=== PATIENT | female | born 1990 | race Caucasian/White ===

== ENCOUNTER 2016-12-24 15:25 | Emergency (ER) | payer OTHER ==
[~2016-12-24] VITALS: Ht 154.9 cm; Wt 97.1 kg
[~2016-12-24 15:25] MED LIST: HYDR-971 PO; NAPR550T PO; OXYC-323 PO
[2016-12-24 16:44] VITALS: BP 125/81
[2016-12-24] MEDS ORDERED: NAPROXEN 250 MG TABLET PO ONE (17:00)
[2016-12-24] MEDS ORDERED: NAPROXEN 250 MG TABLET ONE (17:04)
--- NOTE | 2016-12-24 17:37 | ED.ADGEN ---
Past Medical History Past Medical History: Anxiety, Depression Past Surgical History: Cholecystectomy, Alcohol Use: None Drug Use: None Adult General Chief Complaint Chief Complaint: CHEST WALL PAIN HPI HPI Patient is a 26 year old woman with a history of anxiety, who presents to the emergency department with a complaint of anterior chest wall tightness and shortness of breath over the past several days. Patient states that he was at a [employer] game on Sunday, she states that she is afraid of heights, did not realize that the seats that she was going to were "way up high". Patient states that she experienced a severe anxiety attack while she was at the game, states that "my legs just gave out", states that she was lowered to the ground, did not fall did not strike her head or chest. She states that she was taken down to the medical station, where she received oxygen for several hours, and was observed until she felt calmer. She states that she has not taken any additional medications or any other exposures, or any other ingestions. Denies any focal weakness, numbness or tingling, any headache, any fevers or chills. No recent travel or surgery, no swelling extremities, no rashes, history of DVT or PE in himself or family members, patient does not take any exogenous estrogens. Review of Systems Review of Systems Constitutional: Denies fever or chills. [] Eyes: Denies change in visual acuity. [] HENT: Denies nasal congestion or sore throat. [] Respiratory: Denies cough or shortness of breath. [] Cardiovascular: Anterior chest wall pain, worse with deep inspiration. No edema. GI: Denies abdominal pain, nausea, vomiting, bloody stools or diarrhea. [] : Denies dysuria. [] Musculoskeletal: Denies back pain or joint pain. [] Integument: Denies rash. [] Neurologic: Denies headache, focal weakness or sensory changes. [] Endocrine: Denies polyuria or polydipsia. [] Lymphatic: Denies swollen glands. [] Psychiatric: Denies depression or anxiety. [] Current Medications Current Medications Current Medications Medications (Trade) Dose Ordered Sig/Britta Start Time Stop Time Status Last Admin Dose Admin Naproxen (Naprosyn) 250 mg STK-MED ONCE 12/24/16 17:04 12/24/16 18:28 DC Allergies Allergies Allergies Coded Allergies Type Severity Reaction Last Updated Verified No Known Drug Allergies 08/09/15 No Physical Exam Physical Exam Constitutional: Well developed, well nourished, no acute distress, non-toxic appearance. [] HENT: Normocephalic, atraumatic, bilateral external ears normal, oropharynx moist, no oral exudates, nose normal. [] Eyes: PERRLA, EOMI, conjunctiva normal, no discharge. [] Neck: Normal range of motion, no tenderness, supple, no stridor. [] Cardiovascular:Heart rate regular rhythm, no murmur, S1, S2, rubs and gallops. [ ] Lungs & Thorax: Bilateral breath sounds clear to auscultation, no wheezing, rhonchi, rales. No chest crepitus, patient with reproducible chest tenderness across the anterior portion of her chest, worse between ribs 4 and ribs 6 across the anterior portion, no lesions or external abnormality identified. Abdomen: Bowel sounds normal, soft, no tenderness, no masses, no pulsatile masses. [] Skin: Warm, dry, no erythema, no rash. [] Back: No tenderness, no CVA tenderness. [] Extremities: No tenderness, no cyanosis, no clubbing, ROM intact, no edema. Negative Homans sign. [] Neurologic: Alert and oriented X 3, normal motor function, normal sensory function, no focal deficits noted. [] Psychologic: Affect normal, judgement normal, mood normal. [] Current Patient Data Vital Signs Vital Signs Date Time Temp Pulse Resp B/P (MAP) Pulse Ox O2 Delivery O2 Flow Rate FiO2 12/24/16 16:44 79 20 125/81 (96) 98 Room Air 12/24/16 15:37 98.3 98.3 Lab Values Laboratory Tests Test 12/24/16 14:43 POC Urine HCG, Qualitative Hcg negative (Negative) EKG EKG EC: Sinus rhythm, heart rate 74 beats/minute, upright axis, QTC of 418, ND of 150, QRS 92, no ST elevations or depressions, no evidence of acute ST abnormalities. As interpreted by me. [] Radiology/Procedures Radiology/Procedures [][facility] [address] [place], [place] [id number] IMAGING REPORT Signed PATIENT: ARTUROGOVENANCIO VALADEZ V ACCOUNT: [id number] : 1990 LOCATION: ER AGE: 26 SEX: F EXAM STATUS: DEP ER ORD. PHYSICIAN: EMILY VOSS DO REASON: CP PROCEDURE: CHEST PA & LATERAL PA and lateral chest radiographs 12/24/2016. Clinical History: Chest pain and anxiety. PA and lateral digital radiographs of the chest were obtained. Comparison study dated 03/20/2010. The cardiac and mediastinal silhouettes are within normal limits in size and configuration. No pulmonary infiltrate is seen. No pleural effusion or pneumothorax is noted. The osseous structures are grossly intact. Impression: No radiographic evidence of active cardiopulmonary disease. DICTATED and SIGNED BY: NATALIE PETER MD DATE: 12/24/16 1608 CC: EMILY VOSS DO; UNKNOWN PCP NAME ~ Course & Med Decision Making Course & Med Decision Making Pertinent Labs and Imaging studies reviewed. (See chart for details) Patient well-appearing, oxygen saturation is 99% on room air, respiratory rate is 18-20, and unlabored, heart rate is in the 70s, patient is normotensive. Patient denies any concerning history, it does sound as though she was hyperventilating quite significantly, had discussed the patient she may be expressing some costochondritis or muscle strain for this episode of anxiety. Chest x-ray was ordered, did not reveal any concerning findings, patient was hCG negative. She did receive naproxen in the ED, on reevaluation she states that her pain is improved. Discussed with patient that concerning findings had not been identified. Patient is relieved with these findings, an ambulatory trial was performed in the emergency department, patient's saturation remained in the mid upper 90s, with a heart rate in the 80s, she denied any concerning symptoms during this trial. Patient states she is ready to go home at this time. Discussed with patient use of [id number] medications as as naproxen , and cyclobenzaprine for discomfort, discussed importance of follow-up with a primary care provider for additional evaluation of her anxiety symptoms, and concerning symptoms that prompt return to the emergency department. Patient voices understanding and agreement plan as stated, discharged home in stable condition with prescriptions, precautions, and plan as above. Dragon Disclaimer Dragon Disclaimer This electronic medical record was generated, in whole or in part, using a voice recognition dictation system. Departure Impression: Primary Impression: Costochondritis Additional Impressions: Muscle strain Anxiety Disposition: 01 HOME, SELF-CARE Condition: IMPROVED Scripts Cyclobenzaprine Hcl (CYCLOBENZAPRINE HCL) 10 Mg Tablet 10 MG PO TID Y for MUSCLE PAIN, #12 TAB Prov: EMILY VOSS DO 12/24/16 Naproxen (NAPROXEN) 250 Mg Tablet 250 MG PO PRN BID Y for PAIN, #10 Prov: EMILY VOSS DO 12/24/16 Problem Qualifiers EMILY VOSS DO Dec 24, 2016 17:37
[2016-12-24] MEDS ORDERED: NAPR250T2 PO (18:15)
[2016-12-24] MEDS ORDERED: CYCL10TA2 PO (18:15)
--- NOTE | 2016-12-24 18:27 | RAD ---
PA and lateral chest radiographs 12/24/2016. Clinical History: Chest pain and anxiety. PA and lateral digital radiographs of the chest were obtained. Comparison study dated 03/20/2010. The cardiac and mediastinal silhouettes are within normal limits in size and configuration. No pulmonary infiltrate is seen. No pleural effusion or pneumothorax is noted. The osseous structures are grossly intact. Impression: No radiographic evidence of active cardiopulmonary disease.
--- NOTE | 2016-12-25 06:26 | EKG ---
[facility] [address] [place] [address] Test Date: 2016-12-24 Test Time: 15:31:15 Pat Name: VENANCIO CARBAJAL Department: Room: Gender: F Site Operations Manager: : 1990 Requested By: EMILY VOSS Order Number: [id number] Reading MD: Measurements Intervals [place] Rate: 74 P: 0 RI: 150 QRS: 4 QRSD: 92 T: 7 QT: 372 QTc: 418 Interpretive Statements SINUS RHYTHM QRS(T) CONTOUR ABNORMALITY CANNOT RULE OUT ANTEROSEPTAL MYOCARDIAL DAMAGE RI6.01 Unconfirmed report No previous ECG available for comparison
== END 2016-12-24 18:24 | disposition home or self-care (01) ==
LOC: ER 15:25
DX: S29.011A Strain of muscle and tendon of front wall of thorax, initial encounter (principal); M94.0 Chondrocostal junction syndrome [Tietze]; F41.9 Anxiety disorder, unspecified; F32.9 Major depressive disorder, single episode, unspecified; Z90.49 Acquired absence of other specified parts of digestive tract; X58.XXXA Exposure to other specified factors, initial encounter; Y93.89 Activity, other specified; Y92.89 Other specified places as the place of occurrence of the external cause; Y99.8 Other external cause status
CPT/HCPCS: 71020; 81025; 93005; 99284-25

== ENCOUNTER 2017-01-18 22:54 | Emergency (ER) | payer OTHER ==
[~2017-01-18] VITALS: Ht 160 cm; Wt 97.1 kg
[~2017-01-18 22:54] MED LIST changes: +CYCL10TA2 PO; +NAPR-682 PO; +NAPR250T6 PO; -NAPR550T PO
[2017-01-19] MEDS ORDERED: fentaNYL PF VIAL 100 MCG/2 ML VIAL IV ONE (00:15)
[2017-01-19 00:20] LABS: BASO # 0.1 x10^3/uL (0.0-0.2); BASO % 1 % (0-3); EOS % 1 % (0-3); HEMATOCRIT 39.1 % (36.0-47.0); HEMOGLOBIN 13.1 g/dL (12.0-15.5); LYMPH # 3.1 x10^3/uL (1.0-4.8); LYMPH % 34 % (24-48); MEAN CORPUSCULAR HEMOGLOBIN 30 pg (25-35); MEAN CORPUSCULAR HGB CONC 34 g/dL (31-37); MEAN CORPUSCULAR VOLUME 88 fL (79-100); MONO % 8 % (0-9); NEUT % 57 % (31-73); PLATELET COUNT 228 x10^3/uL (140-400); RED BLOOD COUNT 4.42 x10^6/uL (3.50-5.40); RED CELL DISTRIBUTION WIDTH 13.9 % (11.5-14.5); WHITE BLOOD COUNT 9.1 x10^3/uL (4.0-11.0)
[2017-01-19] MEDS ORDERED: ONDANSETRON PF 4 MG/2 ML VIAL. ONE (00:22)
[2017-01-19 00:27] LABS: BILIRUBIN,URINE NEGATIVE (NEG); GLUCOSE,URINE NEGATIVE (NEG); NITRITE,URINE NEGATIVE (NEG); PH,URINE 6.5; PROTEIN,URINE NEGATIVE (NEG-TRACE); UROBILINOGEN,URINE 0.2 mg/dL (0.2 mg/dL)
[2017-01-19 00:29] LABS: NEG OBC SER NEG; POS OBC SER POS
[2017-01-19] MEDS ORDERED: ONDANSETRON PF 4 MG/2 ML VIAL. IV ONE (00:30)
[2017-01-19 00:31] LABS: CALCIUM 9.1 mg/dL (8.5-10.1); CREATININE 0.8 mg/dL (0.6-1.0); GFR 85.4; POTASSIUM 3.8 mmol/L (3.5-5.1)
[2017-01-19 00:35] LABS: BACTERIA,URINE 0 /HPF (0-FEW); RBC,URINE 0 /HPF (0-2); SQUAMOUS EPITHELIAL CELL,UR FEW /LPF; WBC,URINE 0 /HPF (0-4)
[2017-01-19 00:37] LABS: ALBUMIN 3.5 g/dL (3.4-5.0); C-REACTIVE PROTEIN 7.5 mg/L (0-3.3); TOTAL BILIRUBIN 0.1 mg/dL (0.2-1.0); TOTAL PROTEIN 7.1 g/dL (6.4-8.2)
[2017-01-19] MEDS ORDERED: CONTRAST GIVEN MC PRN (01:45)
[2017-01-19] MEDS ORDERED: IOHEXOL 300 MG/ML 75 ML VIAL IV ONE (01:45)
[2017-01-19] MEDS ORDERED: MORPHINE SULFATE 4 MG/ML DISP.SYRIN. IV ONE (02:00)
--- NOTE | 2017-01-19 02:13 | RAD ---
INDICATION: abd pain; Omni 300, 75ml COMPARISON: November 24, 2015 TECHNIQUE: Axial CT images were obtained through the abdomen and pelvis with intravenous contrast. One or more of the following individualized dose reduction techniques were utilized for this examination: 1. Automated exposure control; 2. Adjustment of the mA and/or kV according to patient size; 3. Use of iterative reconstruction technique. FINDINGS: Chest Base: Partially imaged without gross abnormality. Vessels: No abdominal aortic aneurysm. Liver/Biliary: No intrahepatic biliary duct dilation. Pancreas: No peripancreatic edema. Spleen: Normal. Kidneys/Adrenal: No hydronephrosis. Bladder: No definite adjacent inflammation. GI: No free air. No bowel dilation to suggest obstruction. The appendix measures approximately 5-6 mm without definite adjacent inflammation. IMPRESSION: 1. The appendix is near the upper limits of normal in size but there is no adjacent inflammatory changes at this time. 2. No evidence of bowel obstruction or hydronephrosis. Electronically signed by: Marco Gonzalez MD (01/19/2017 2:10 AM) [id number]
[2017-01-19 02:30] VITALS: BP 108/58
--- NOTE | 2017-01-19 04:40 | PHYS DOC ---
Past Medical History Past Medical History: Anxiety, Depression Past Surgical History: Cholecystectomy, Alcohol Use: None Drug Use: None Adult General Chief Complaint Chief Complaint: ABDOMINAL PAIN HPI HPI Patient is a 26 year old female with history of cholecystectomy who presents with diffuse midabdominal pain starting several hours prior to ED arrival. Abdominal pain is rated mild to moderate described as burning. It is worse palpation. Patient is unable to find position of rest or comfort. Tylenol taken with limited improvement. No flank pain, urinary frequency urgency, no dysuria. No hematuria. No history of abdominal pain. No constipation or diarrhea. No bloody stools or dark tarry stools. Denies nausea or vomiting. No fever chills or sweats. Last menstrual period was one month ago. Patient is not currently on control. Review of Systems Review of Systems Review symptoms as prescribed. All other review symptoms are negative. Current Medications Current Medications Current Medications Medications (Trade) Dose Ordered Sig/Britta Start Time Stop Time Status Last Admin Dose Admin Fentanyl Citrate (Fentanyl 2ml Vial) 75 mcg 1X ONCE 01/19/17 00:15 01/19/17 00:16 DC 01/19/17 00:26 75 MCG Info (Do NOT chart on this entry -- for MONITORING) 1 each PRN DAILY PRN 01/19/17 01:45 01/19/17 03:00 DC Iohexol (Omnipaque 300 Mg/ml) 75 ml 1X ONCE 01/19/17 01:45 01/19/17 01:46 DC 01/19/17 01:59 75 ML Morphine Sulfate 4 mg 1X ONCE 01/19/17 02:00 01/19/17 02:10 DC 01/19/17 02:02 4 MG Ondansetron HCl (Zofran) 4 mg 1X ONCE 01/19/17 00:30 01/19/17 00:41 DC 01/19/17 00:26 4 MG Allergies Allergies Allergies Coded Allergies Type Severity Reaction Last Updated Verified No Known Drug Allergies 08/09/15 No Physical Exam Physical Exam Constitutional: Well developed, well nourished, no acute distress, non-toxic appearance. [] HENT: Normocephalic, atraumatic, bilateral external ears normal, oropharynx moist, no oral exudates, nose normal. [] Eyes: PERRLA, EOMI, conjunctiva normal, no discharge. [] Neck: Normal range of motion, no tenderness, supple, no stridor. [] Cardiovascular:Heart rate regular rhythm, no murmur [] Lungs & Thorax: Bilateral breath sounds clear to auscultation [] Abdomen: Bowel sounds normal, soft, no distention, periumbilical pain, tenderness, no rebound rigidity or guarding, negative for any sign. [] Skin: Warm, dry, no erythema, no rash. [] Back: No tenderness, no CVA tenderness. [] Extremities: No tenderness. [] Neurologic: Alert and oriented X 3, normal motor function, normal sensory function, no focal deficits noted. [] Psychologic: Affect normal, judgement normal, mood normal. [] Current Patient Data Vital Signs Vital Signs Date Time Temp Pulse Resp B/P (MAP) Pulse Ox O2 Delivery O2 Flow Rate FiO2 01/19/17 02:30 72 16 108/58 (75) 97 Room Air 01/18/17 23:20 97.6 97.6 Lab Values Laboratory Tests Test 01/18/17 22:38 01/18/17 23:04 01/18/17 23:11 POC Urine HCG, Qualitative Hcg negative (Negative) Urine Collection Type Unknown Urine Color Yellow Urine Clarity Clear Urine pH 6.5 Urine Specific [place]ola 1.020 Urine Protein Negative mg/dL (NEG-TRACE) Urine Glucose (UA) Negative mg/dL (NEG) Urine Ketones (Stick) Negative mg/dL (NEG) Urine Blood Negative (NEG) Urine Nitrite Negative (NEG) Urine Bilirubin Negative (NEG) Urine Urobilinogen Dipstick 0.2 mg/dL (0.2 mg/dL) Urine Leukocyte Esterase Negative (NEG) Urine RBC 0 /HPF (0-2) Urine WBC 0 /HPF (0-4) Urine Squamous Epithelial Cells Few /LPF Urine Amorphous Sediment Present /HPF Urine Bacteria 0 /HPF (0-FEW) Urine Mucus Slight /LPF White Blood Count 9.1 x10^3/uL (4.0-11.0) Red Blood Count 4.42 x10^6/uL (3.50-5.40) Hemoglobin 13.1 g/dL (12.0-15.5) Hematocrit 39.1 % (36.0-47.0) Mean Corpuscular Volume 88 fL (79-100) Mean Corpuscular Hemoglobin 30 pg (25-35) Mean Corpuscular Hemoglobin Concent 34 g/dL (31-37) Red Cell Distribution Width 13.9 % (11.5-14.5) Platelet Count 228 x10^3/uL (140-400) Neutrophils (%) (Auto) 57 % (31-73) Lymphocytes (%) (Auto) 34 % (24-48) Monocytes (%) (Auto) 8 % (0-9) Eosinophils (%) (Auto) 1 % (0-3) Basophils (%) (Auto) 1 % (0-3) Neutrophils # (Auto) 5.1 x10^3uL (1.8-7.7) Lymphocytes # (Auto) 3.1 x10^3/uL (1.0-4.8) Monocytes # (Auto) 0.7 x10^3/uL (0.0-1.1) Eosinophils # (Auto) 0.1 x10^3/uL (0.0-0.7) Basophils # (Auto) 0.1 x10^3/uL (0.0-0.2) Sodium Level 142 mmol/L (136-145) Potassium Level 3.8 mmol/L (3.5-5.1) Chloride Level 105 mmol/L (98-107) Carbon Dioxide Level 26 mmol/L (21-32) Anion Gap 11 (6-14) Blood Urea Nitrogen 12 mg/dL (7-20) Creatinine 0.8 mg/dL (0.6-1.0) Estimated GFR (Cockcroft-Gault) 85.4 BUN/Creatinine Ratio 15 (6-20) Glucose Level 103 mg/dL (70-99) H Calcium Level 9.1 mg/dL (8.5-10.1) Total Bilirubin 0.1 mg/dL (0.2-1.0) L Aspartate Amino Transferase (AST) 15 U/L (15-37) Alanine Aminotransferase (ALT) 28 U/L (14-59) Alkaline Phosphatase 73 U/L (46-116) C-Reactive Protein, Quantitative 7.5 mg/L (0-3.3) H Total Protein 7.1 g/dL (6.4-8.2) Albumin 3.5 g/dL (3.4-5.0) Albumin/Globulin Ratio 1.0 (1.0-1.7) Serum Test, Qualitative Negative (NEG) Laboratory Tests 01/18/17 23:11 Laboratory Tests 01/18/17 23:11 EKG EKG [] Radiology/Procedures Radiology/Procedures [CT abdomen pelvis: Appendix identified without evidence of inflammation. Appendix upper limits of normal per radiology report.] Course & Med Decision Making Course & Med Decision Making Pertinent Labs and Imaging studies reviewed. (See chart for details) [Periumbilical pain and tenderness without acute findings on CT. Possible early appendicitis. Will recheck in the ED in less than 24 hours. Patient verbalizes understanding agreement discharge instructions prior to departure.] Dragon Disclaimer Dragon Disclaimer This electronic medical record was generated, in whole or in part, using a voice recognition dictation system. Departure Departure Impression: Primary Impression: Abdominal pain Disposition: HOME, SELF-CARE Condition: GOOD Patient Instructions: Abdominal Pain (Nonspecific) Additional Instructions: You were evaluated in the emergency department for abdominal pain. The cause of your symptoms has not been determined, but may be caused by an early appendicitis or unknown cause. Please to home and rest, take Tylenol for pain and tramadol as needed for additional relief. Drink clear liquids only. Return to the emergency department 12-18 hours or reevaluation or sooner if worse. KRISH SABA DO Jan 19, 2017 04:40
[2017-01-19] MEDS ORDERED: AZIT500T PO (18:02)
[2017-01-19] MEDS ORDERED: METR500T PO (18:02)
[2017-01-19] MEDS ORDERED: NAPR500T PO (18:02)
[2017-01-19] MEDS ORDERED: CEFI200S PO (18:02)
== END 2017-01-19 03:00 | disposition home or self-care (01) ==
LOC: ER 22:54
DX: R10.33 Periumbilical pain (principal); Z90.49 Acquired absence of other specified parts of digestive tract; Z98.890 Other specified postprocedural states
CPT/HCPCS: 36415; 74177; 80053; 81001; 81025; 84703; 85025; 86140; 96374; 96375; 99285; J2270; J2405; J3010; Q9967

== ENCOUNTER 2017-01-19 16:20 | Emergency (ER) | payer OTHER ==
[~2017-01-19] VITALS: Ht 160 cm; Wt 97.1 kg
[2017-01-19] MEDS ORDERED: KETOROLAC TROMETHAMINE 60 MG/2 ML INJ. IM ONE (17:00)
--- NOTE | 2017-01-19 17:07 | PHYS DOC ---
Past Medical History Past Medical History: Anxiety, Depression Past Surgical History: Cholecystectomy, Alcohol Use: None Drug Use: None Adult General Chief Complaint Chief Complaint: ABDOMINAL PAIN HPI HPI Patient is a 26 year old female presents to the emergency department with complaints of lower abdominal pain. Patient states that she was in the emergency department yesterday evening for same complaint. She had labs and a CT abdomen. She states she was advised that her appendix was enlarged and was discharged home with pain medication and clear liquid diet. She was told return to the emergency department today for reevaluation and possible admission. Patient reports that her pain started approximately 1 week prior to her visit yesterday. It is not associated with fever, nausea, vomiting, or urinary symptoms. Patient states that she has pain associated with intercourse, no vaginal discharge. She states she does have a new sexual partner. Review of Systems Review of Systems Constitutional: Denies fever or chills [] Eyes: Denies change in visual acuity, redness, or eye pain [] HENT: Denies nasal congestion or sore throat [] Respiratory: Denies cough or shortness of breath [] Cardiovascular: No additional information not addressed in HPI [] GI: Abdominal pain without nausea, vomiting, bloody stools or diarrhea. : Denies dysuria or hematuria [] Musculoskeletal: Denies back pain or joint pain [] Integument: Denies rash or skin lesions [] Neurologic: Denies headache, focal weakness or sensory changes [] Endocrine: Denies polyuria or polydipsia [] Current Medications Current Medications Current Medications Medications (Trade) Dose Ordered Sig/Britta Start Time Stop Time Status Last Admin Dose Admin Ketorolac Tromethamine (Toradol Im) 60 mg 1X ONCE 01/19/17 17:00 01/19/17 17:01 DC 01/19/17 17:21 60 MG Allergies Allergies Allergies Coded Allergies Type Severity Reaction Last Updated Verified No Known Drug Allergies 08/09/15 No Physical Exam Physical Exam Constitutional: Well developed, well nourished, no acute distress, non-toxic appearance. [] HENT: Normocephalic, atraumatic, bilateral external ears normal, oropharynx moist, no oral exudates, nose normal. [] Neck: Normal range of motion, no tenderness, supple, no stridor. [] Cardiovascular:Heart rate regular rhythm, no murmur [] Lungs & Thorax: Bilateral breath sounds clear to auscultation [] Abdomen: Bowel sounds normal, soft, no masses, no pulsatile masses. Mild tenderness to palpate a few slow abdomen without localization in the right lower quadrant. There is no rebound tenderness or guarding.[] : External genitalia within normal limits. Vaginal exam: Small amount of white discharge, the cervix is engorged. Bi-Manual exam: CMT and bilateral adnexal tenderness Skin: Warm, dry, no erythema, no rash. [] Back: No tenderness, no CVA tenderness. [] Extremities: No tenderness, no cyanosis, no clubbing, ROM intact, no edema. [] Neurologic: Alert and oriented X 3, normal motor function, normal sensory function, no focal deficits noted. [] Psychologic: Affect normal, judgement normal, mood normal. [] Current Patient Data Vital Signs Vital Signs Date Time Temp Pulse Resp B/P (MAP) Pulse Ox O2 Delivery O2 Flow Rate FiO2 01/19/17 17:15 82 16 119/70 (86) 97 Room Air 01/19/17 16:25 98.9 98.9 Lab Values Laboratory Tests Test 01/19/17 16:03 01/19/17 16:50 POC Urine HCG, Qualitative Hcg negative (Negative) White Blood Count 8.2 x10^3/uL (4.0-11.0) Red Blood Count 4.55 x10^6/uL (3.50-5.40) Hemoglobin 13.5 g/dL (12.0-15.5) Hematocrit 39.9 % (36.0-47.0) Mean Corpuscular Volume 88 fL (79-100) Mean Corpuscular Hemoglobin 30 pg (25-35) Mean Corpuscular Hemoglobin Concent 34 g/dL (31-37) Red Cell Distribution Width 14.2 % (11.5-14.5) Platelet Count 232 x10^3/uL (140-400) Neutrophils (%) (Auto) 57 % (31-73) Lymphocytes (%) (Auto) 33 % (24-48) Monocytes (%) (Auto) 8 % (0-9) Eosinophils (%) (Auto) 1 % (0-3) Basophils (%) (Auto) 1 % (0-3) Neutrophils # (Auto) 4.7 x10^3uL (1.8-7.7) Lymphocytes # (Auto) 2.7 x10^3/uL (1.0-4.8) Monocytes # (Auto) 0.6 x10^3/uL (0.0-1.1) Eosinophils # (Auto) 0.1 x10^3/uL (0.0-0.7) Basophils # (Auto) 0.1 x10^3/uL (0.0-0.2) Laboratory Tests 01/19/17 16:50 EKG EKG [] Radiology/Procedures Radiology/Procedures [] Course & Med Decision Making Course & Med Decision Making Pertinent Labs and Imaging studies reviewed. (See chart for details) []Inform the patient of her test results, diagnosis and plan to discharge home. I discussed with her plan for prescriptions for Zithromax, Suprax, Flagyl. The patient understands and agrees with the plan. All questions have been addressed at this time. The patient is resting comfortably and feels better, is alert and in no distress. Repeat examination is unremarkable and benign; in particular, there is no discomfort [place] point. The history, exam, diagnostic testing, and current condition do not suggest acute appendicitis, bowel disruption, tubo- ovarian abscess, ectopic , ovarian torsion, acute cholecystitis, bowel perforation, major GI bleed, severe diverticulitis, sepsis or other significant pathology to warrant further testing and continued ED treatment, admission or surgical valuation this point. Vital signs been stable. The patient does not have uncontrollable pain, intractable vomiting, or other significant symptoms. Since condition is stable and appropriate for discharge. The patient will pursue further outpatient evaluation with her primary care provider or other designated or consulting physician is indicated in the discharge instructions. Dragon Disclaimer Dragon Disclaimer This electronic medical record was generated, in whole or in part, using a voice recognition dictation system. Departure Departure Impression: Primary Impression: PID (acute pelvic inflammatory disease) Disposition: 01 HOME, SELF-CARE Condition: LEFT WITHOUT BEING SEEN Referrals: NO PCP (PCP) [facility] Patient Instructions: Pelvic Inflammatory Disease Additional Instructions: Please take prescriptions as directed. Pelvic rest, no sexual intercourse for 10 days. Your partner should report to the health Department for evaluation and treatment. Return to the emergency department for worsening of symptoms, new symptoms or concerns. Scripts Cefixime (SUPRAX) 200 Mg/5 Ml Susp.recon 400 MG PO ONCE, #10 ML Prov: RICARDO VARGHESE APRN 01/19/17 Naproxen (NAPROSYN) 500 Mg Tablet 500 MG PO BID Y for PAIN, #20 TAB Prov: RICARDO VARGHESE APRN 01/19/17 Metronidazole (FLAGYL) 500 Mg Tablet 1 TAB PO ONCE, #4 TAB Prov: RICARDO VARGHESE APRN 01/19/17 Azithromycin (ZITHROMAX) 500 Mg Tablet 2 TAB PO ONCE, #2 TAB Prov: RICARDO VARGHESE APRN 01/19/17 RICARDO VARGHESE APRN Jan 19, 2017 17:07
[2017-01-19 17:11] LABS: BASO # 0.1 x10^3/uL (0.0-0.2); BASO % 1 % (0-3); EOS % 1 % (0-3); HEMATOCRIT 39.9 % (36.0-47.0); HEMOGLOBIN 13.5 g/dL (12.0-15.5); LYMPH # 2.7 x10^3/uL (1.0-4.8); LYMPH % 33 % (24-48); MEAN CORPUSCULAR HEMOGLOBIN 30 pg (25-35); MEAN CORPUSCULAR HGB CONC 34 g/dL (31-37); MEAN CORPUSCULAR VOLUME 88 fL (79-100); MONO % 8 % (0-9); NEUT % 57 % (31-73); PLATELET COUNT 232 x10^3/uL (140-400); RED BLOOD COUNT 4.55 x10^6/uL (3.50-5.40); RED CELL DISTRIBUTION WIDTH 14.2 % (11.5-14.5); WHITE BLOOD COUNT 8.2 x10^3/uL (4.0-11.0)
[2017-01-19] MEDS ORDERED: AZIT500T PO (18:02)
[2017-01-19] MEDS ORDERED: CEFI200S PO (18:02)
[2017-01-19] MEDS ORDERED: NAPR500T PO (18:02)
[2017-01-19] MEDS ORDERED: METR500T PO (18:02)
[2017-01-19 18:14] VITALS: BP 117/68
== END 2017-01-19 18:15 | disposition home or self-care (01) ==
LOC: ER 16:20
DX: N73.9 Female pelvic inflammatory disease, unspecified (principal); Z90.49 Acquired absence of other specified parts of digestive tract; Z98.890 Other specified postprocedural states
CPT/HCPCS: 81025; 85025; 96372; 99284; J1885; Q0111; 36415; 87491; 87591

== ENCOUNTER 2020-09-25 11:46 | Emergency (ER) | payer OTHER ==
[~2020-09-25] VITALS: Ht 157.5 cm; Wt 105.0 kg
[~2020-09-25 11:46] MED LIST changes: +AZIT500T PO; +CEFI200S PO; +HYDR-3164 PO; -HYDR-971 PO; +METR500T PO; +NAPR-683 PO; +NAPR-699 PO; -NAPR250T6 PO; -OXYC-323 PO; +OXYC1TAB15 PO
[2020-09-25 12:00] VITALS: BP 132/79
[2020-09-25] MEDS ORDERED: MUPI22OI2 TP (12:40)
[2020-09-25] MEDS ORDERED: CEPH500C PO (12:40)
--- NOTE | 2020-09-25 12:41 | ED.ADGEN ---
Past Medical History Past Medical History: Anxiety, Depression Past Surgical History: Cholecystectomy, Smoking Status: Never Smoker Alcohol Use: None Drug Use: None General Adult EDM: Chief Complaint: INSECT BITE HPI: HPI: Patient is a 29 year old female who presents to the emergency department with complaints of left anterior thigh pain, redness, and swelling for the last 3 days. Patient states she was bit by something in the area and it has progressively become more painful and red. She denies any drainage or bleeding from the site. Patient denies any fever, cough, body aches, fatigue, nausea, vomiting, diarrhea, cough, or shortness of breath. She states that the affected area has been very itchy and tender. She currently rates her discomfort 8 out of 10 on the pain scale, the area is touched or she bears weight on her left leg the pain increases to a 10 out of 10. Review of Systems: Review of Systems: Complete ROS is negative unless otherwise noted in HPI. Allergies: Allergies: Allergies Coded Allergies Type Severity Reaction Last Updated Verified No Known Drug Allergies 08/09/15 No Physical Exam: PE: See Above Constitutional: Well developed, well nourished, no acute distress, non-toxic appearance. [] HENT: Normocephalic, atraumatic, bilateral external ears normal, nose normal. [] Eyes: PERRLA, EOMI, conjunctiva normal, no discharge. [] Neck: Normal range of motion, no stridor. [] Cardiovascular:Heart rate regular rhythm Lungs & Thorax: Respirations even and unlabored, no retractions, no respiratory distress Skin: Warm, dry; area of indurated tissue and erythema to the left anterior thigh without fluctuance or active drainage/bleeding, consistent with localized reaction/infection of insect bite. Extremities: No cyanosis, ROM intact, no edema. [] Neurologic: Alert and oriented X 3, normal motor, normal sensory, no focal deficits noted. [] Psychologic: Affect normal, judgement normal, mood normal. [] Current Patient Data: Vital Signs: Vital Signs Date Time Temp Pulse Resp B/P (MAP) Pulse Ox O2 Delivery O2 Flow Rate FiO2 09/25/20 12:00 98.7 88 18 132/79 (96) 96 Room Air 98.7 EKG: EKG: [] Heart Score: C/O Chest Pain: No Risk Scores: Score 0 - 3: 2.5% MACE over next 6 weeks - Discharge Home Score 4 - 6: 20.3% MACE over next 6 weeks - Admit for Clinical Observation Score 7 - 10: 72.7% MACE over next 6 weeks - Early Invasive Strategies Radiology/Procedures: Radiology/Procedures: [] Course & Med Decision Making: Course & Med Decision Making Pertinent Labs and Imaging studies reviewed. (See chart for details) [] Dragon Disclaimer: Dragon Disclaimer: This electronic medical record was generated, in whole or in part, using a voice recognition dictation system. Departure Departure Impression: Primary Impression: Infected insect bite of left thigh Disposition: HOME / SELF CARE / HOMELESS Condition: STABLE Referrals: NO PCP (PCP) Patient Instructions: Insect Bite, [id number] Additional Instructions: Fill the prescriptions and use them as directed you may take Benadryl or apply hydrocortisone cream/ointment as needed for relief of itching. You may take Tylenol or ibuprofen as needed for pain. Recommend application of heat or ice as needed for comfort. Follow-up with your primary care doctor next week for wound recheck, return to the ER if symptoms worsen or fever develops. [facility] [address] [place] [address] [facility] [address] [place] [address] [facility] [address] [facility] [place] [address] [facility] [address] [place] [address] [facility] [address] [place] [address] [facility] [address] [place] [address] [facility] [address] [place] [address] [facility] [address] [place] [address] [facility] [address] [place] [address] [facility] [address] [place] [address] [facility] Mupirocin (MUPIROCIN OINTMENT) 22 Gm Oint...g. 1 CHRISTEN TP TID for WOUND CARE for 7 Days, #1 TUBE 0 Refills Prov: ESTEPHANIE NELSON APRN 09/25/20 Cephalexin (CEPHALEXIN) 500 Mg Capsule 1 CAP PO QID for 7 Days, #28 CAP 0 Refills Prov: ESTEPHANIE NELSON APRN 09/25/20 Attending Signature Attending Signature I have reviewed the PA/ADOPTION AGENT's note and plan of care. I was available for consultation as needed during the patient's visit in the emergency department. I agree with the clinical impression, plan, and disposition. Problem Qualifiers Primary Impression: Infected insect bite of left thigh Encounter type: initial encounter Qualified Codes: S70.362A - Insect bite (nonvenomous), left thigh, initial encounter; L08.9 - Local infection of the skin and subcutaneous tissue, unspecified; W57.XXXA - Bitten or stung by nonvenomous insect and other nonvenomous arthropods, initial encounter ESTEPHANIE NELOSN APRN September 25, 2020 12:41 PANCHITO ÁLVAREZ DO September 25, 2020 15:02
== END 2020-09-25 12:45 | disposition home or self-care (01) ==
LOC: ER 11:46
DX: S70.362A Insect bite (nonvenomous), left thigh, initial encounter (principal); L08.9 Local infection of the skin and subcutaneous tissue, unspecified; W57.XXXA Bitten or stung by nonvenomous insect and other nonvenomous arthropods, initial encounter; Y93.89 Activity, other specified; Y92.89 Other specified places as the place of occurrence of the external cause; Y99.8 Other external cause status
CPT/HCPCS: 99283

== ENCOUNTER 2021-03-23 09:37 | Emergency (ER) | payer OTHER ==
[~2021-03-23] VITALS: Ht 157.5 cm; Wt 104.5 kg
[~2021-03-23 09:37] MED LIST changes: +CEPH500C PO; +CYCL10TA19 PO; -CYCL10TA2 PO; +MUPI22OI2 TP
[2021-03-23 10:20] VITALS: BP 132/71
--- NOTE | 2021-03-23 11:13 | RAD ---
XR HAND_LEFT 3 VIEWS DATE: 03/23/2021 10:26 AM INDICATION: smashed hand in car door COMPARISON: None. FINDINGS: Bones: There is no evidence of acute fracture or dislocation. Joints: The joint spaces are normal. Miscellaneous: None. IMPRESSION: No evidence of acute fracture. Electronically signed by: Ganga Wagner MD (03/23/2021 11:10 AM) [id number]
--- NOTE | 2021-03-23 11:34 | PHYS DOC ---
Past Medical History Past Medical History: Anxiety, Depression Past Surgical History: Cholecystectomy, , Tubal ligation Smoking Status: Never Smoker Alcohol Use: None Drug Use: None General Adult EDM: Chief Complaint: HAND PROBLEM HPI: HPI: Patient is a 30-year-old female who presents to the emergency department for left hand pain. She reports that the majority of her pain is located to the third and fourth finger of her left hand. Pain started this morning if she smashed her hand in a car door. Patient reports that her range of motion is decreased due to the pain. Sensation intact. Patient denies any open wounds. Review of Systems: Review of Systems: Musculoskeletal: See HPI Integument: See HPI Neurologic: See HPI Heart Score: C/O Chest Pain: N/A Risk Factors: Risk Factors: DM, Current or recent (<one month) smoker, HTN, HLP, family history of CAD, obesity. Risk Scores: Score 0 - 3: 2.5% MACE over next 6 weeks - Discharge Home Score 4 - 6: 20.3% MACE over next 6 weeks - Admit for Clinical Observation Score 7 - 10: 72.7% MACE over next 6 weeks - Early Invasive Strategies Allergies: Allergies: Allergies Coded Allergies Type Severity Reaction Last Updated Verified No Known Drug Allergies 08/09/15 No Physical Exam: PE: Constitutional: Well developed, well nourished, no acute distress, non-toxic appearance. [] HENT: Normocephalic, atraumatic Eyes: PERRL EOMI, conjunctiva normal, no discharge. [] Neck: Normal range of motion, n no stridor Cardiovascular: Normal peripheral perfusion Lungs & Thorax: No work of breathing, no tachypnea Abdomen: Bowel sounds normal, soft, no tenderness, no masses, no pulsatile masses. [] Skin: Warm, dry, no erythema, no rash. [] Back: Normal range of motion Extremities: No tenderness, no cyanosis, no clubbing, ROM intact, no edema. Left hand: Swelling and ecchymosis noted to left third and fourth finger starting at the PIP joint and extending to the DIP joint. Limited flexion of those fingers due to pain, neuro intact, full extension. No open wounds. Nailbed intact.] Neurologic: Alert and oriented X 3, normal motor function, normal sensory function, no focal deficits noted. [] Psychologic: Affect normal, judgement normal, mood normal. [] Current Patient Data: Vital Signs: Vital Signs Date Time Temp Pulse Resp B/P (MAP) Pulse Ox O2 Delivery O2 Flow Rate FiO2 03/23/21 10:20 98.2 80 17 132/71 (91) 97 Room Air 98.2 EKG: EKG: [] Radiology/Procedures: Radiology/Procedures: []PROCEDURE: HAND LEFT 3V XR HAND_LEFT 3 VIEWS DATE: 03/23/2021 10:26 AM INDICATION: smashed hand in car door COMPARISON: None. FINDINGS: Bones: There is no evidence of acute fracture or dislocation. Joints: The joint spaces are normal. Miscellaneous: None. IMPRESSION: No evidence of acute fracture. Electronically signed by: Edwin Voss MD (03/23/2021 11:10 AM) [id number] DICTATED and SIGNED BY: EDWIN VOSS MD DATE: 03/23/21 [id number] 0 Course & Med Decision Making: Course & Med Decision Making Pertinent Labs and Imaging studies reviewed. (See chart for details) [] She was seen in the emergency department for left hand pain after she smashed it in her car door this morning. An x-ray was performed that was negative for any acute findings. An Hugh wrap was placed. Patient educated to use ice and take Tylenol and/or ibuprofen for pain. Follow-up with primary care provider. I discussed with patient all findings and diagnostic testing as well as the need to follow-up with PCP for further evaluation and treatment or return to the ER if any new or worsening symptoms. Strict return precautions were also discussed at length. Patient voiced understanding and agreement with the plan. Patient is hemodynamically stable at the time of disposition. Dragon Disclaimer: Dragon Disclaimer: This electronic medical record was generated, in whole or in part, using a voice recognition dictation system. Departure Departure Impression: Primary Impression: Hand contusion Qualified Codes: S60.222A - Contusion of left hand, initial encounter Disposition: HOME / SELF CARE / HOMELESS Condition: GOOD Referrals: NO PCP (PCP) Patient Instructions: Hand Contusion, RICE - Routine Care for Injuries Additional Instructions: You were seen in the emergency department after he smashed your hand in a car door. An x-ray was performed of your hand and fingers that showed no acute findings. Your hand was placed in an Hugh wrap to help with the swelling. You can also apply ice and elevation to help with the swelling. You can take Tylenol and/or ibuprofen for your pain. Follow-up with your primary care provider tomorrow regarding your ER visit. Return to the emergency department if you develop worsening of your pain, decreased range of motion, increased swelling, decreased sensation in your extremity. EUGENE MILLER [employer]MENT O[employer]ATOR Mar 23, 2021 11:34
== END 2021-03-23 11:45 | disposition home or self-care (01) ==
LOC: ER 09:37
DX: S60.222A Contusion of left hand, initial encounter (principal); W23.0XXA Caught, crushed, jammed, or pinched between moving objects, initial encounter; Y93.89 Activity, other specified; Y92.89 Other specified places as the place of occurrence of the external cause; Y99.8 Other external cause status
CPT/HCPCS: 73130; 99283